=== PATIENT | female | born 1965 | race Caucasian/White ===

== ENCOUNTER 2016-09-19 16:44 | Observation (INO) | payer OTHER ==
[~2016-09-19] VITALS: Ht 162.6 cm; Wt 59.6 kg
[2016-09-19] VITALS (7 sets, daily range): BP systolic 104–146; BP diastolic 57–76; PULSE 95–111; RESP 18–24; TEMP 99.6–102.7; O2SAT 90–100
[~2016-09-19 16:44] MED LIST: ASPI325T PO; GABA400C5 PO; HYDR-3535 PO; IBUP600T26 PO; LISI-363 PO; MORP1INJ45 PO
[2016-09-19] MEDS ORDERED: VANCOMYCIN INJ 1,000 MG in SODIUM CHLOR 0.9% 250 ML INJ 250 ML IV STA (17:10)
[2016-09-19] MEDS ORDERED: PIPERACIL-TAZO 4.5 GM PREMIX 100 ML IV STA (17:10)
[2016-09-19] MEDS ORDERED: LORazepam 2 MG/ML VIAL IV PUSH ONE (17:15)
[2016-09-19] MEDS ORDERED: SODIUM CHLOR 0.9% 1000 ML INJ 1,000 ML IV ONE ×2 (17:23)
[2016-09-19] MEDS ORDERED: RESP: ALBUTEROL 2.5 MG/IPRATROPIUM 0.5 MG NEB (SCH) INH ONE (17:30)
[2016-09-19] MEDS ORDERED: IBUPROFEN 600 MG TAB PO ONE (17:30)
[2016-09-19] MEDS ORDERED: ACETAMINOPHEN 500 MG CPLT PO ONE (17:30)
[2016-09-19 17:40] LABS: AUTOMATED NEUTROPHIL # 7.1 TH/MM3 (1.8-7.7); EOSINOPHIL % 0.1 % (0.0-4.0); HEMO FLAGS DIFF FINAL; LYMPH % 11.7 % (9.0-44.0); MEAN CELL VOLUME 88.5 FL (80.0-100.0); MEAN CORPUSCULAR HGB CONC 33.9 % (32.0-36.0); MONO % 4.8 % (0.0-8.0); NEUT % 83.4 % (16.0-70.0); PLATELET COUNT 199 TH/MM3 (150-450); RED BLOOD COUNT 4.41 MIL/MM3 (4.00-5.30); RED CELL DISTRIBUTION WIDTH 12.3 % (11.6-17.2); WHITE BLOOD COUNT 8.5 TH/MM3 (4.0-11.0)
[2016-09-19 17:41] LABS: GLUCOSE,URINE NEG (NEG); KETONE, URINE TRACE mg/dL (NEG); NITRITE,URINE NEG (NEG); PH, URINE 5.5 (5.0-8.5)
--- NOTE | 2016-09-19 17:43 | PD ---
HPI Chief Complaint: Fever Time Seen by Provider: 17:10 Travel History International Travel<30 days: No Contact w/Intl Traveler<30days: No Traveled to known affect area: No History of Present Illness HPI 51-year-old female with history of borderline MR to the emergency department with 3 day history of high fevers of 101-102 according to her brother. Patient is somewhat delirious, but also has something to do with her baseline status. She has had a cough. Patient has history of pneumonia approximately 10 years ago. She denies any specific complaints but is disoriented. Patient does smoke approximately 1 pack per day. No significant complaints of abdominal pain or urinary pain. It is difficult to assess due to the patient's poor historian status. She has no known drug allergies. PFSH Past Medical History Cancer: No Diabetes: No Diminished Hearing: No Fibromyalgia: Yes Hepatitis: No Hiatal Hernia: No Hypertension: Yes Thyroid Disease: No ?: Not Menopausal: Yes Past Surgical History Abdominal Surgery: Yes (REPAIR RIGHT INGUINAL HERNIA) Oral Surgery: Yes (DENTAL SX) Pacemaker: No Other Surgery: Yes (INGUINAL HERNIA REPAIR, BLADDER FOR PROLAPSE) Social History Alcohol Use: No Tobacco Use: Yes (1 PPD) Substance Use: No Allergies-Medications (Allergen,Severity, Reaction): Coded Allergies: No Known Allergies (Verified , 09/19/16) Reported Meds & Prescriptions Reported Meds & Active Scripts Active Reported [Muscle Relaxer] Lortab (Hydrocodone-Acetaminophen) 10-325 Mg Tab 1 Tab PO DIRECTED PRN Review of Systems ROS Limitations: Clinical Condition, Poor Historian Except as stated in HPI: all other systems reviewed are Neg General / Constitutional: Positive: Fever, Chills Eyes: No: Visual changes HENT: No: Headaches Cardiovascular: No: Chest Pain or Discomfort Respiratory: Positive: Cough, Shortness of Breath, Wheezing Gastrointestinal: Positive: Nausea, Loss of Appetite, No: Abdominal Pain Genitourinary: No: Dysuria Musculoskeletal: No: Pain Skin: No Rash Neurologic: No: Weakness Psychiatric: No: Depression Endocrine: No: Polydipsia Hematologic/Lymphatic: No: Easy Bruising Physical Exam Exam Limitations: Clinical Condition, Altered Mental Status, Uncooperative Narrative GENERAL: Patient is in moderate distress. SKIN: Warm and dry. Normal color. Normal turgor. HEAD: Atraumatic. Normocephalic. EYES: Pupils equal and round. No scleral icterus. No injection or drainage. ENT: No nasal bleeding or discharge. Mucous membranes pink and moist. Pharynx is open. NECK: Trachea midline. Supple and nontender. CARDIOVASCULAR: Regular rate and rhythm. RESPIRATORY: No accessory muscle use. Diffuse wheezes throughout to auscultation. Breath sounds equal bilaterally. GASTROINTESTINAL: Abdomen soft, non-tender, nondistended. Hepatic and splenic margins not palpable. MUSCULOSKELETAL: Extremities without clubbing, cyanosis, or edema. No obvious deformities. NEUROLOGICAL: Awake and alert. No obvious cranial nerve deficits. Motor grossly within normal limits. Five out of 5 muscle strength in the arms and legs. Normal speech. PSYCHIATRIC: Appropriate mood and affect; insight and judgment normal. Data Data Last Documented VS Vital Signs Date Time Temp Pulse Resp B/P Pulse Ox O2 Delivery O2 Flow Rate FiO2 09/19/16 18:23 102.7 96 20 104/76 95 5 17:47 Room Air Orders Electrocardiogram (09/19/16 17:10) Complete Blood Count With Diff (09/19/16 17:10) Comprehensive Metabolic Panel (09/19/16 17:10) Prothrombin Time / Inr (Pt) (09/19/16 17:10) Act Partial Throm Time (Ptt) (09/19/16 17:10) Lactic Acid Sepsis Protocol (09/19/16 17:10) Magnesium (Mg) (09/19/16 17:10) Urinalysis - C+S If Indicated (09/19/16 17:10) Influenzae A/B Antigen (09/19/16 17:10) Blood Culture (09/19/16 17:10) Chest, Single Ap (09/19/16 17:10) Blood Glucose (09/19/16 17:10) Ecg Monitoring (09/19/16 17:10) Iv Access Insert/Monitor (09/19/16 17:10) Oximetry (09/19/16 17:10) Oxygen Administration (09/19/16 17:10) Vancomycin Inj (Vancomycin Inj) (09/19/16 17:10) Piperacil-Tazo 4.5 Gm Premix (Zosyn 4.5 (09/19/16 17:10) Lorazepam Inj (Ativan Inj) (09/19/16 17:15) Acetaminophen (Tylenol) (09/19/16 17:30) Ibuprofen (Motrin) (09/19/16 17:30) Albuterol-Ipratropium Neb (Duoneb Neb) (09/19/16 17:30) Sodium Chlor 0.9% 1000 Ml Inj (Ns 1000 M (09/19/16 17:23) Sodium Chlor 0.9% 1000 Ml Inj (Ns 1000 M (09/19/16 17:23) Urine Culture (09/19/16 17:15) B-Type Natriuretic Peptide (09/19/16 18:41) Troponin I (09/19/16 17:15) Admit Order (Ed Use Only) (09/19/16 19:00) Albuterol-Ipratropium Neb (Duoneb Neb) (09/19/16 19:15) Labs Laboratory Tests Test 09/19/16 17:15 White Blood Count 8.5 TH/MM3 Red Blood Count 4.41 MIL/MM3 Hemoglobin 13.2 GM/DL Hematocrit 39.0 % Mean Corpuscular Volume 88.5 FL Mean Corpuscular Hemoglobin 30.0 PG Mean Corpuscular Hemoglobin 33.9 % Concent Red Cell Distribution Width 12.3 % Platelet Count 199 TH/MM3 Mean Platelet Volume 8.5 FL Neutrophils (%) (Auto) 83.4 % Lymphocytes (%) (Auto) 11.7 % Monocytes (%) (Auto) 4.8 % Eosinophils (%) (Auto) 0.1 % Basophils (%) (Auto) 0.0 % Neutrophils # (Auto) 7.1 TH/MM3 Lymphocytes # (Auto) 1.0 TH/MM3 Monocytes # (Auto) 0.4 TH/MM3 Eosinophils # (Auto) 0.0 TH/MM3 Basophils # (Auto) 0.0 TH/MM3 CBC Comment DIFF FINAL Differential Comment Prothrombin Time 11.2 SEC Prothromb Time International 1.0 RATIO Ratio Activated Partial 32.1 SEC Thromboplast Time Urine Color STRAW Urine Turbidity SLIGHT Urine pH 5.5 Urine Specific [place] 1.015 Urine Protein NEG mg/dL Urine Glucose (UA) NEG mg/dL Urine Ketones TRACE mg/dL Urine Occult Blood MOD Urine Nitrite NEG Urine Bilirubin NEG Urine Leukocyte Esterase NEG Urine RBC 4-9 /hpf Urine WBC 0-2 /hpf Urine Squamous Epithelial 0-5 /hpf Cells Urine Bacteria MANY /hpf Microscopic Urinalysis Comment CULTURE INDICATED Sodium Level 141 MEQ/L Potassium Level 3.7 MEQ/L Chloride Level 104 MEQ/L Carbon Dioxide Level 28.8 MEQ/L Anion Gap 8 MEQ/L Blood Urea Nitrogen 11 MG/DL Creatinine 0.74 MG/DL Estimat Glomerular Filtration 83 ML/MIN Rate Random Glucose 112 MG/DL Lactic Acid Level 1.3 mmol/L Calcium Level 9.3 MG/DL Magnesium Level 1.8 MG/DL Total Bilirubin 0.4 MG/DL Aspartate Amino Transf 43 U/L (AST/SGOT) Alanine Aminotransferase 48 U/L (ALT/SGPT) Alkaline Phosphatase 90 U/L Troponin I LESS THAN 0.02 NG/ML B-Type Natriuretic Peptide 73 PG/ML Total Protein 8.0 GM/DL Albumin 4.0 GM/DL Urine Opiates Screen POS Urine Barbiturates Screen NEG Urine Amphetamines Screen NEG Urine Benzodiazepines Screen POS Urine Cocaine Screen NEG Urine Cannabinoids Screen NEG MDM Medical Decision Making Medical Screen Exam Complete: Yes Emergency Medical Condition: Yes Medical Record Reviewed: Yes Differential Diagnosis Viral illness. Influenza. Pneumonia. Bronchitis. Wheezing. Sepsis. Narrative Course Patient is medically stable at time of exam. Sepsis workup is ordered, as well as EKG. CBC, CMP, PT PTT and INR, magnesium. Blood cultures 2. Influenza A and B. And urinalysis. Chest x-ray is ordered. Patient is given 1000 mg of acetaminophen and 600 mg ibuprofen. By mouth. Patient is given Zosyn 0.5 g IV as well as vancomycin 1000 mg IV. Patient is given 2 L normal saline bolus. Patient is given a DuoNeb 1. Patient is given lorazepam 1 mg IV. Patient was moved from fast track area to the medical bed side, and care of the patient was assumed by Dr. Lewis. Please see his note for final disposition. Scripts Oxygen tank 1 Ea Tank #2 Liter Sanchez.canula Continuous Oxygen Concentrator Portable Gaseous 2 L/min via Nasal Cannula Continuous For 99 months Prov:Greg Mcdaniels MD PhD 09/20/16 Albuterol Neb 1.25 Mg/3 Ml Neb1.25 Mg NEB Q4HR NEB PRN (SHORTNESS OF BREATH) # 50 NEBULE Ref 0 Prov:Greg Mcdaniels MD PhD 09/20/16 Levofloxacin (Levaquin)750 Mg [id number] Mg PO Q24H #6 TAB Prov:Greg Mcdaniels MD PhD 09/20/16 Gabapentin (Neurontin)300 Mg [id number] Mg PO QID 30 Days Prov:Greg Mcdaniels MD PhD 09/20/16 Condition: Stable Diego Brown September 19, 2016 17:43
[2016-09-19] MEDS ORDERED: GABA600T PO (17:47)
[2016-09-19] MEDS ORDERED: LISI-515 PO (17:47)
[2016-09-19] MEDS ORDERED: HYDR-3535 PO (17:47)
[2016-09-19] MEDS ORDERED: MORP15TA73 PO (17:47)
[2016-09-19] MEDS ORDERED: MUSCLE RELAXER (17:47)
[2016-09-19 17:49] LABS: CHLORIDE 104 MEQ/L (98-107); POTASSIUM 3.7 MEQ/L (3.5-5.1); SODIUM (NA) 141 MEQ/L (136-145)
[2016-09-19 17:51] LABS: BLOOD, URINE MOD (NEG)
[2016-09-19 17:53] LABS: ANION GAP 8 MEQ/L (5-15); BICARBONATE 28.8 MEQ/L (21.0-32.0); BLOOD UREA NITROGEN 11 MG/DL (7-18); MAGNESIUM 1.8 MG/DL (1.5-2.5)
[2016-09-19 17:56] LABS: ALT (GPT) 48 U/L (10-53); AST (GOT) 43 U/L (15-37); GLOMERULAR FILTRATION RATE 83 ML/MIN (>89)
[2016-09-19 17:58] LABS: TOTAL BILIRUBIN ADULT 0.4 MG/DL (0.2-1.0)
[2016-09-19 17:59] LABS: ALKALINE PHOSPHATASE 90 U/L (45-117); URINE COLOR STRAW (YELLW/STRAW)
[2016-09-19 18:00] LABS: SQUAMOUS EPITHELIAL CELL URINE 0-5 /hpf (0-5); WBC, URINE 0-2 /hpf (0-5)
[2016-09-19 18:01] LABS: BACTERIA, URINE MANY /hpf; COMMENT (UR) CULTURE INDICATED; CULTURE IF INDICATED CULTURE INDICATED
--- NOTE | 2016-09-19 18:30 | RADHPO ---
EXAM DATE/TIME: 09/19/2016 17:34 [facility] COMPARISON: No previous studies available for comparison. INDICATIONS : Fever. MEDICAL HISTORY : Hypertension. Chronic obstructive pulmonary disease. Arthritis. Asthma, Spinal stenosis, Anxiety, Fibromyalgia, Hyperlipidemia SURGICAL HISTORY : Hysterectomy. Hernia repair ENCOUNTER: Initial ACUITY: 3 days PAIN SCORE: 4/10 LOCATION: Bilateral chest FINDINGS: There is symmetric mild bilateral perihilar and basilar reticular nodular infiltrate. No evidence of effusion. Cardiac contours are grossly satisfactory. CONCLUSION: Symmetric bilateral reticulonodular infiltrates. Kt Ramos MD on September 19, 2016 at 18:28 Board Certified Radiologist. This report was verified electronically.
[2016-09-19 18:58] LABS: APTT (PATIENT) 32.1 SEC (24.3-30.1); PROTHROMBIN TIME - PATIENT 11.2 SEC (9.8-11.6)
[2016-09-19] MEDS ORDERED: RESP: ALBUTEROL 2.5 MG/IPRATROPIUM 0.5 MG NEB (SCH) NEB ONE (19:15)
[2016-09-19] MEDS ORDERED: ACETAMINOPHEN 500 MG CPLT PO PRN (20:15)
[2016-09-19] MEDS ORDERED: NS + KCL 20 MEQ INJ 1,000 ML IV SCH (20:15)
[2016-09-19] MEDS ORDERED: RESP: ALBUTEROL 2.5 MG/IPRATROPIUM 0.5 MG NEB (PRN) NEB (20:15)
--- NOTE | 2016-09-19 20:28 | HHI.HP ---
HPI Service CP Hospitalists Primary Care Physician Non-Staff Admission Diagnosis Fever/Sepsis Chief Complaint: Fever, weakness Travel History International Travel<30 Days: No Contact w/Intl Traveler <30 Da: No Traveled to Known Affected Are: No Sepsis Criteria SIRS Criteria (2 or more): Temp > 100.9 or < 96.8, Heart rate over 90, RR > 20 or PaCO2 < 32 Sepsis Criteria (SIRS+source): Infect source susp/known History of Present Illness 51-year-old female with history of diet-controlled diabetes, hypertension, chronic pain syndrome and questionable COPD presents to the emergency department with 3 day history of high fevers of 101-102 according to her . Patient reportedly was somewhat delirious initially but appears back to her baseline mentation on my exam. Her reports that she didn't want to come tonight despite having the fevers to last 2-3 days. She has had a cough with thick phlegm production. Denies hemoptysis. Denies chest pain. Patient has history of pneumonia approximately 10 years ago. She reportedly was initially disoriented but is now oriented to place and time as well as situation. Patient does smoke approximately 1 pack per day. Denies dysuria or hematuria but says that she has had to fight urinary tract infection since she had a failed cystocele repair several years ago. She has no known drug allergies. Review of Systems ROS Limitations: Poor Historian Constitutional: COMPLAINS OF: Diaphoretic episodes, Fatigue, Fever, Chills Eyes: DENIES: Blurred vision, Diplopia, Eye inflammation, Eye pain, Vision loss , Photosensitivity, Double Vision Ears, nose, mouth, throat: DENIES: Tinnitus, Hearing loss, Vertigo, Nasal discharge, Oral lesions, Throat pain, Hoarseness, Ear Pain, Running Nose, Epistaxis, Sinus Pain, Toothache, Odynophagia Respiratory: COMPLAINS OF: Cough, Wheezing, Sputum production, Shortness of breath, DENIES: Apneas, Snoring, Hemoptysis Cardiovascular: DENIES: Chest pain, Palpitations, Syncope, Dyspnea on Exertion , PND, Lower Extremity Edema, Orthopnea, Claudication Gastrointestinal: DENIES: Abdominal pain, Black stools, Bloody stools, BRB per rectum, Constipation, Diarrhea, GERD, Nausea, Reflux, Vomiting, Difficulty Swallowing, Anorexia, See HPI Musculoskeletal: COMPLAINS OF: Joint pain, Back pain Integumentary: DENIES: Abnormal pigmentation, Pruritus, Rash, Nail changes, Breast masses, Breast skin changes, Nipple discharge Hematologic/lymphatic: DENIES: Bruising, Lymphadenopathy Psychiatric: COMPLAINS OF: Anxiety Past Family Social History Past Medical History Cervicalgia Chronic pain syndrome Fibromyalgia Asthma vs COPD tobacco use HTN Hyperlipidemia DM 2, diet control Anxiety Migraine h/a osteoporosis Past Surgical History RI rpr 1999 Hysterectomy 2012 Reported Medications Lisinopril 20 Mg Tab 20 Mg PO DAILY Gabapentin 600 Mg Tab 600 Mg PO 4 times a day Morphine Sulfate CR (Morphine Sulfate) 15 Mg Tab 1 Tab PO 3 times a day Lortab (Hydrocodone-Acetaminophen) 10-325 Mg Tab 1 Tab PO EVERY 8 HOURS WHEN NECESSARY BREAKTHROUGH PAIN Ipratropium nebulizer as needed. Baclofen 10 mg 3 times a day. Xanax 2 mg daily at bedtime Allergies: Coded Allergies: No Known Allergies (Verified , 09/19/16) Family History Noncontributory Social History Lives with , since 2007 Tobacco use, 1ppd for 30 yrs. Rare EtOH, Denies illicits Disabled secondary to chronic pain Originally from [place]. Physical Exam Vital Signs Vital Signs Date Time Temp Pulse Resp B/P Pulse Ox O2 Delivery O2 Flow Rate FiO2 09/19/16 19:17 99.6 100 18 104/57 98 Aerosol Mask 09/19/16 19:17 100 20 98 Aerosol Mask 09/19/16 18:23 102.7 96 20 104/76 95 09/19/16 17:47 102.0 102 24 146/65 100 Room Air 09/19/16 17:39 100 Room Air 09/19/16 17:39 100 Room Air 09/19/16 17:24 92 Room Air 09/19/16 17:01 102.1 111 20 132/67 90 Physical Exam GENERAL: This is a well-nourished, well-developed patient, in no apparent distress. Sleeping initially but arouses to voice. Alert cooperative with exam. SKIN: No rashes, ecchymoses or lesions with the exception of a few surface abrasions on the left forearm. Cool and dry. HEAD: Atraumatic. Normocephalic. No temporal or scalp tenderness. EYES: Pupils equal round and reactive. Extraocular motions intact. No scleral icterus. No injection or drainage. ENT: Nose without bleeding, purulent drainage or septal hematoma. Airway patent. NECK: Trachea midline. No JVD or lymphadenopathy. Supple, nontender, no meningeal signs. CARDIOVASCULAR: Regular rate and rhythm without murmurs, gallops, or rubs. Heart rate around 90 on my exam. RESPIRATORY: Coarse breath sounds bilaterally with expiratory wheezes bilaterally. Fair air movement. No fine crackles. GASTROINTESTINAL: Abdomen soft, non-tender, nondistended. No hepato-splenomegaly , or palpable masses. No guarding. MUSCULOSKELETAL: Extremities without clubbing, cyanosis, or edema. Mild tenderness to palpation and paralumbar area. No CVA tenderness. No calf tenderness. NEUROLOGICAL: Awake and alert. Cranial nerves II through XII intact. Motor and sensory grossly within normal limits. Five out of 5 muscle strength in all muscle groups. Laboratory Laboratory Tests Test 09/19/16 17:15 White Blood Count 8.5 Red Blood Count 4.41 Hemoglobin 13.2 Hematocrit 39.0 Mean Corpuscular Volume 88.5 Mean Corpuscular Hemoglobin 30.0 Mean Corpuscular Hemoglobin 33.9 Concent Red Cell Distribution Width 12.3 Platelet Count 199 Mean Platelet Volume 8.5 Neutrophils (%) (Auto) 83.4 Lymphocytes (%) (Auto) 11.7 Monocytes (%) (Auto) 4.8 Eosinophils (%) (Auto) 0.1 Basophils (%) (Auto) 0.0 Neutrophils # (Auto) 7.1 Lymphocytes # (Auto) 1.0 Monocytes # (Auto) 0.4 Eosinophils # (Auto) 0.0 Basophils # (Auto) 0.0 CBC Comment DIFF FINAL Differential Comment Prothrombin Time 11.2 Prothromb Time International 1.0 Ratio Activated Partial 32.1 Thromboplast Time Urine Color STRAW Urine Turbidity SLIGHT Urine pH 5.5 Urine Specific [place] 1.015 Urine Protein NEG Urine Glucose (UA) NEG Urine Ketones TRACE Urine Occult Blood MOD Urine Nitrite NEG Urine Bilirubin NEG Urine Leukocyte Esterase NEG Urine RBC 4-9 Urine WBC 0-2 Urine Squamous Epithelial 0-5 Cells Urine Bacteria MANY Microscopic Urinalysis Comment CULTURE INDICATED Sodium Level 141 Potassium Level 3.7 Chloride Level 104 Carbon Dioxide Level 28.8 Anion Gap 8 Blood Urea Nitrogen 11 Creatinine 0.74 Estimat Glomerular Filtration 83 Rate Random Glucose 112 Lactic Acid Level 1.3 Calcium Level 9.3 Magnesium Level 1.8 Total Bilirubin 0.4 Aspartate Amino Transf 43 (AST/SGOT) Alanine Aminotransferase 48 (ALT/SGPT) Alkaline Phosphatase 90 Troponin I LESS THAN 0.02 B-Type Natriuretic Peptide 73 Total Protein 8.0 Albumin 4.0 Date/Time Procedure Status Source Growth 09/19/16 17:35 Influenza Types A,B Antigen ([facility]) - Final Complete Nasal Washing NEGATIVE FOR FLU A AND B ANTIGEN.... 09/19/16 17:15 Urine Culture Received Urine Clean Catch Pending 09/19/16 17:15 Aerobic Blood Culture Received Blood Peripheral Pending 09/19/16 17:15 Anaerobic Blood Culture Received Blood Peripheral Pending Result Diagram: 09/19/16 1715 09/19/16 1715 Imaging Last 72 hours Impressions Chest X-Ray 09/19/16 1710 Signed Impressions: Service Date/Time: Monday, September 19, 2016 17:34 - CONCLUSION: Symmetric bilateral reticulonodular infiltrates. Kt Ramos MD Assessment and Plan Problem List: (1) Pneumonia Status: Acute Plan: will treat initially with IV abx and hopefully transition to oral Levofloxacin Continue nebs, supplemental oxygen, 1 dose steroid Patient reluctantly agreed to stay at least overnight. I told her I would do my best to get her out tomorrow however if she continued to spike fevers or had some deterioration that this would be unlikely. (2) Urine findings abnormal Status: Acute Plan: possibly contributing to febrile illness. Will follow clinically. Continue abx. IVF. (3) Hypertension Status: Chronic Plan: will hold med for now (4) Chronic pain disorder Status: Chronic Plan: continue morphine for now. Will hold lortab initially due to tylenol content. Outpt f/u with pain mgmt (5) DM2 (diabetes mellitus, type 2) Status: Chronic Plan: apparently diet controlled. A1c 6.0 on most recent outpt labs DM diet. Accucheck bid (6) Anxiety Status: Chronic Plan: xanax as at home. Code Status Full Discussed Condition With Patient, her and ER healthcare provider. Greg Mcdaniels MD PhD September 19, 2016 20:28
[2016-09-19 20:52] LABS: AMPHETAMINE, URINE NEG (NEG); BARBITURATES, URINE NEG (NEG); COCAINE, URINE NEG (NEG)
[2016-09-19] MEDS ORDERED: LEVOFLOXACIN 750 MG TAB PO SCH (21:00)
[2016-09-19] MEDS ORDERED: ALPRAZolam 1 MG TAB PO SCH (21:00)
[2016-09-19] MEDS ORDERED: methylPREDNISolone SOD SUCC 40 MG/1 ML VIAL IV PUSH ONE (21:00)
[2016-09-19] MEDS: GABAPENTIN 300 MG CAP PO SCH (22:36)
[2016-09-19] MEDS: MORPHINE SULFATE 15 MG TAB PO PRN (22:47)
[2016-09-20 00:43] VITALS: BP 115/67; PULSE 89; RESP 16; TEMP 98.4; O2SAT 93
[2016-09-20 04:00] VITALS: BP 124/76; PULSE 88; RESP 20; TEMP 98.3; O2SAT 90
[2016-09-20] MEDS ORDERED: BACL10TA PO (04:26)
[2016-09-20] MEDS: MORPHINE SULFATE 15 MG TAB PO PRN (05:44)
--- NOTE | 2016-09-20 06:34 | HHI.PR ---
Subjective Remarks Feeling better this AM. In complaint is low back pain and rib pain due to the coughing. She reports that she generally takes Lortab for breakthrough pain which I actually held yesterday due to the Tylenol content. She is desirous of discharge home. She has walked in her room. She is tolerating oral intake. Her mentation is back to baseline per her report. They do note that the increased dose of gabapentin causes her to have some confusion and she had seen neurology regarding this. Objective Vitals Vital Signs Date Time Temp Pulse Resp B/P Pulse Ox O2 Delivery O2 Flow Rate FiO2 09/20/16 04:00 98.3 88 20 124/76 90 09/20/16 00:43 98.4 89 16 115/67 93 09/19/16 23:35 94 Nasal Cannula 2.00 09/19/16 21:24 99.7 95 20 115/60 97 09/19/16 20:36 18 97 09/19/16 19:17 99.6 100 18 104/57 98 Aerosol Mask 09/19/16 19:17 100 20 98 Aerosol Mask 09/19/16 18:23 102.7 96 20 104/76 95 09/19/16 17:47 102.0 102 24 146/65 100 Room Air 09/19/16 17:39 100 Room Air 09/19/16 17:39 100 Room Air 09/19/16 17:24 92 Room Air 09/19/16 17:01 102.1 111 20 132/67 90 09/19/16 09/19/16 09/20/16 15:00 23:00 07:00 Intake Total 1250 ml 1050 ml Output Total 1300 ml Balance 1250 ml -250 ml Intake Oral 750 ml IV Total 1250 ml 300 ml Output Urine Total 1300 ml # Voids 0 # Bowel Movements 0 GENERAL: Awake, alert and oriented. Cooperative with exam. No acute distress. SKIN: Warm and dry. HEAD: Normocephalic. EYES: No scleral icterus. No injection or drainage. NECK: Supple, trachea midline. No JVD or lymphadenopathy. CARDIOVASCULAR: Regular rate and rhythm without murmurs, gallops, or rubs. RESPIRATORY: Few coarse breath sounds in the bases, no wheezing. Improved air movement. No fine crackles. GASTROINTESTINAL: Abdomen soft, non-tender, nondistended. MUSCULOSKELETAL: No cyanosis, or edema. BACK: Mild paralumbar spasm. No central tenderness to palpation. No CVA tenderness. Result Diagram: 09/19/16 1715 09/19/16 171 Imaging Last 72 hours Impressions Chest X-Ray 09/19/161709 Signed Impressions: Service Date/Time: Monday, September 19, 2016 17:34 - CONCLUSION: Symmetric bilateral reticulonodular infiltrates. Kt Ramos MD Urinary Catheter: No Vascular Central Line Catheter: No A/P Problem List: (1) Pneumonia Status: Acute Plan: Convert to oral Levaquin. Continue nebs, supplemental oxygen, 1 dose steroid given. Patient desires discharge home today. She has not had any more fever overnight. Will have respiratory see her for home oxygen determination. (2) Urine findings abnormal Status: Acute Plan: possibly contributing to febrile illness. Will follow clinically. Continue abx. IVF. (3) Hypertension Status: Chronic Plan: BP well controlled here. We'll have patient hold medication for now. (4) Chronic pain disorder Status: Chronic Plan: continue morphine for now. Will hold lortab initially due to tylenol content. Outpt f/u with pain mgmt (5) DM2 (diabetes mellitus, type 2) Status: Chronic Plan: apparently diet controlled. A1c 6.0 on most recent outpt labs DM diet. Accucheck bid (6) Anxiety Status: Chronic Plan: xanax as at home. Discharge Planning Hopefully discharge home later today. Greg Mcdaniels MD PhD September 20, 2016 06:34
[2016-09-20] MEDS ORDERED: ACETAMINOPHEN/HYDROcodone 325 MG/10 MG TAB PO PRN (06:45)
[2016-09-20] MEDS ORDERED: BACLOFEN 10 MG TAB PO ONE (06:45)
[2016-09-20] MEDS ORDERED: OXYGENTANK NAS.CANULA (06:47)
[2016-09-20] MEDS ORDERED: NEUR300C PO (06:47)
[2016-09-20] MEDS ORDERED: MORP1TAB24 PO (06:47)
[2016-09-20] MEDS ORDERED: ALBU1.25 NEB (06:47)
[2016-09-20] MEDS ORDERED: LEVA750T PO (06:47)
[2016-09-20 08:00] VITALS: BP 124/64; PULSE 86; RESP 19; TEMP 97.8; O2SAT 92
[2016-09-20] MEDS: GABAPENTIN 300 MG CAP PO SCH (08:09)
[2016-09-20 08:17] VITALS: O2SAT 95
[2016-09-20 09:12] VITALS: RESP 18
--- NOTE | 2016-09-20 13:20 | HHI.PR ---
Addendum to Inpatient Note Addendum Reason: Additional Documentation Additional Information Notified that pt left AMA before her home oxygen could be arranged. It was explained to her by nurse that she needed to wait on oxygen, but pt insisted on leaving. Greg Mcdaniels MD PhD September 20, 2016 13:20
--- NOTE | 2016-09-20 13:27 | EKG ---
Date Performed: 09/19/2016 Time Performed: 17:15:52 PTAGE: 51 years EKG: Sinus tachycardia. Extensive ST-T changes suggest myocardial injury/ischemia Abnormal ECG NO PREVIOUS TRACING DOCTOR: Judi Gupta Interpretating Date/Time 09/20/2016 13:25:37
== END 2016-09-20 13:00 | disposition left against medical advice (07) ==
LOC: PHED 16:44 → PHEDA 19:01 → PH3A 20:34
PROVIDERS: ADMIT Family Medicine; ATTEND Family Medicine
DX: J18.9 Pneumonia, unspecified organism (principal); R82.99 Other abnormal findings in urine; I10 Essential (primary) hypertension; G89.4 Chronic pain syndrome; E11.9 Type 2 diabetes mellitus without complications; F41.9 Anxiety disorder, unspecified; M79.7 Fibromyalgia; M81.0 Age-related osteoporosis without current pathological fracture; F17.200 Nicotine dependence, unspecified, uncomplicated
CPT/HCPCS: 71010; 80053; 80307; 81001; 82948; 83605; 83735; 83880; 84484; 85025; 85610; 85730; 87040; 87077; 87086; 87186; 87804; 93005; 94620; 94640; 94664; 96365; 96367; 96375; 99285; G0378; J2060; J2543; J2920; J3370; J3480; J7030; J7050

== ENCOUNTER 2017-01-08 20:45 | Emergency (ER) | payer OTHER ==
[~2017-01-08 20:45] MED LIST changes: +ALBU1.25 NEB; -ASPI325T PO; +BACL10TA PO; -GABA400C5 PO; -IBUP600T26 PO; +LEVA750T PO; -LISI-363 PO; -MORP1INJ45 PO; +MORP1TAB24 PO; +MUSCLE RELAXER; +NEUR300C PO; +OXYGENTANK NAS.CANULA
[2017-01-08 20:48] VITALS: BP 104/57; PULSE 86; RESP 20
[2017-01-08] MEDS ORDERED: ASPI325T PO (21:17)
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
[2017-01-08] MEDS ORDERED: SODIUM CHLOR 0.9% 1000 ML INJ 1,000 ML IV ONE (21:30)
[2017-01-08 22:29] VITALS: BP 97/48; PULSE 60; RESP 16; TEMP 98.2; O2SAT 97
--- NOTE | 2017-01-08 22:32 | RADRPT ---
EXAM DATE/TIME: 01/08/2017 21:32 [facility] COMPARISON: No previous studies available for comparison. INDICATIONS : Status post fall, blurred vision RADIATION DOSE: 63.08 CTDIvol (mGy) MEDICAL HISTORY : Seizures. Migraine, fibromyalgia SURGICAL HISTORY : Hysterectomy. ENCOUNTER: Initial ACUITY: 1 day PAIN SCALE: 8/10 LOCATION: cranial TECHNIQUE: Multiple contiguous axial images were obtained of the head. Using automated exposure control and adj ustment of the mA and/or kV according to patient size, radiation dose was kept as low as reasonably a chievable to obtain optimal diagnostic quality images. DICOM format image data is available electro nically for review and comparison. FINDINGS: CEREBRUM: The ventricles are normal for age. No evidence of midline shift, mass lesion, hemorrhage or acute in farction. No extra-axial fluid collections are seen. POSTERIOR FOSSA: The cerebellum and brainstem are intact. The 4th ventricle is midline. The cerebellopontine angle i s unremarkable. EXTRACRANIAL: The visualized portion of the orbits is intact. SKULL: The calvaria is intact. No evidence of skull fracture. CONCLUSION: No acute disease. Kt Manuel MD on January 08, 2017 at 22:29 Board Certified Radiologist. This report was verified electronically.
--- NOTE | 2017-01-08 22:34 | RADRPT ---
EXAM DATE/TIME: 01/08/2017 21:32 [facility] COMPARISON: No previous studies available for comparison. INDICATIONS : Status post fall, neck pain RADIATION DOSE: 26.34 CTDIvol (mGy) MEDICAL HISTORY : Seizures. Radiculopathy. fibromyalgia, spinal stenosis SURGICAL HISTORY : Hysterectomy. dental ENCOUNTER: Initial ACUITY: 1 day PAIN SCALE: 9/10 LOCATION: Right neck TECHNIQUE: Volumetric scanning of the cervical spine was performed. Multiplanar reconstructions in the sagittal, coronal and oblique axial planes were performed. Using automated exposure control and adjustment o f the mA and/or kV according to patient size, radiation dose was kept as low as reasonably achievable to obtain optimal diagnostic quality images. DICOM format image data is available electronically f or review and comparison. FINDINGS: VERTEBRAE: Normal vertebral body height. ALIGNMENT: No evidence of subluxation. C2-C3: The bony spinal canal is normal in size. No evidence of disc bulge or herniation. The neural forami na are bilaterally patent. There is prominent right facet hypertrophy. C3-C4: The bony spinal canal is normal in size. No evidence of disc bulge or herniation. The neural forami na are bilaterally patent. C4-C5: The bony spinal canal is normal in size. No evidence of disc bulge or herniation. The neural forami na are bilaterally patent. C5-C6: The bony spinal canal is normal in size. No evidence of disc bulge or herniation. The neural forami na are bilaterally patent. C6-C7: The bony spinal canal is normal in size. No evidence of disc bulge or herniation. The neural forami na are bilaterally patent. C7-T1: The bony spinal canal is normal in size. No evidence of disc bulge or herniation. The neural forami na are bilaterally patent. CONCLUSION: No acute abnormality seen. There is prominent right C2-3 facet hypertrophy. Kt Manuel MD on January 08, 2017 at 22:30 Board Certified Radiologist. This report was verified electronically.
--- NOTE | 2017-01-08 22:36 | RADRPT ---
EXAM DATE/TIME: 01/08/2017 21:36 [facility] COMPARISON: No previous studies available for comparison. INDICATIONS : Right hip pain; fall tonight. MEDICAL HISTORY : None. SURGICAL HISTORY : None. ENCOUNTER: Initial ACUITY: 1 day PAIN SCORE: 10/10 LOCATION: Right hip. FINDINGS: Examination of the right hip was performed with AP Pelvis. The primary and secondary trabecular dhaval apolinar of the femoral neck is intact. The hip joint is of normal width without significant sclerosis or bony hypertrophy. The acetabulum is grossly intact. CONCLUSION: No acute disease. Kt Manuel MD on January 08, 2017 at 22:34 Board Certified Radiologist. This report was verified electronically.
--- NOTE | 2017-01-08 22:49 | RADRPT ---
EXAM DATE/TIME: 01/08/2017 21:48 [facility] COMPARISON: No previous studies available for comparison. INDICATIONS : Right knee pain; fall tonight. MEDICAL HISTORY : SURGICAL HISTORY : None. ENCOUNTER: Initial ACUITY: 1 day PAIN SCORE: 10/10 LOCATION: Right knee FINDINGS: The knee joint is normally aligned. No fracture is seen. No effusion is seen. There i s a focal lucent lesion seen in the proximal tibia measuring at least 4 cm in length. Periosteal reac tion is not seen. It appears to have a narrow zone of transition. CONCLUSION: 1. No definite acute abnormality is seen. 2. Focal lucent bone lesions seen in the proximal tibia in the metaphyseal region. It appears to hav e a narrow zone of transition suggestive of a benign lesion. It could be further evaluated at some p oint with an MRI examination. This could be performed as an outpatient. Kt Manuel MD on January 08, 2017 at 22:38 Board Certified Radiologist. This report was verified electronically.
== END 2017-01-08 23:18 | disposition home or self-care (01) ==
LOC: PHED 20:45
DX: S80.01XA Contusion of right knee, initial encounter (principal); M25.551 Pain in right hip; R51 Headache; J44.9 Chronic obstructive pulmonary disease, unspecified; M79.7 Fibromyalgia; I10 Essential (primary) hypertension; G89.29 Other chronic pain; M54.9 Dorsalgia, unspecified; F17.210 Nicotine dependence, cigarettes, uncomplicated; V86.59XA Driver of other special all-terrain or other off-road motor vehicle injured in nontraffic accident, initial encounter; Y92.007 Garden or yard of unspecified non-institutional (private) residence as the place of occurrence of the external cause; Y99.8 Other external cause status
CPT/HCPCS: 70450; 72125; 73502; 73564; 99285

== ENCOUNTER 2017-01-09 17:35 | Observation (INO) | payer OTHER ==
[2017-01-09] VITALS (10 sets, daily range): BP systolic 77–151; BP diastolic 39–82; PULSE 46–72; RESP 12–16; TEMP 96.1–98.6; O2SAT 93–99
[~2017-01-09] VITALS: Ht 162.6 cm; Wt 64.9 kg
[~2017-01-09 17:35] MED LIST changes: -ALBU1.25 NEB; +ASPI325T PO; -BACL10TA PO; -LEVA750T PO; -MORP1TAB24 PO; -MUSCLE RELAXER; -OXYGENTANK NAS.CANULA
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
[2017-01-09] MEDS ORDERED: SODIUM CHLORIDE 0.9% FLUSH 5 ML FLUSH IV FLUSH PRN (18:15)
[2017-01-09 18:23] LABS: AUTOMATED NEUTROPHIL # 5.7 TH/MM3 (1.8-7.7); BASOPHIL % 0.4 % (0.0-2.0); EOSINOPHIL # 0.1 TH/MM3 (0-0.4); EOSINOPHIL % 0.6 % (0.0-4.0); HEMATOCRIT 42.7 % (35.0-46.0); HEMO FLAGS DIFF FINAL; LYMPH % 40.1 % (9.0-44.0); LYMPHOCYTE # 4.6 TH/MM3 (1.0-4.8); MEAN CELL VOLUME 86.7 FL (80.0-100.0); MEAN CORPUSCULAR HEMOGLOBIN 29.3 PG (27.0-34.0); MEAN CORPUSCULAR HGB CONC 33.8 % (32.0-36.0); MONO % 8.8 % (0.0-8.0); NEUT % 50.1 % (16.0-70.0); PLATELET COUNT 268 TH/MM3 (150-450); RED BLOOD COUNT 4.93 MIL/MM3 (4.00-5.30); RED CELL DISTRIBUTION WIDTH 12.9 % (11.6-17.2); WHITE BLOOD COUNT 11.4 TH/MM3 (4.0-11.0)
[2017-01-09 18:30] LABS: CHLORIDE 103 MEQ/L (98-107); POTASSIUM 4.1 MEQ/L (3.5-5.1); SODIUM (NA) 136 MEQ/L (136-145)
[2017-01-09 18:34] LABS: ANION GAP 9 MEQ/L (5-15); BLOOD UREA NITROGEN 41 MG/DL (7-18)
[2017-01-09 18:35] LABS: APTT (PATIENT) 26.1 SEC (24.3-30.1); INTERNATIONAL NORMALIZED RATIO 0.9 RATIO
[2017-01-09 18:37] LABS: ALT (GPT) 29 U/L (10-53); AST (GOT) 27 U/L (15-37); GLOMERULAR FILTRATION RATE 17 ML/MIN (>89)
[2017-01-09 18:38] LABS: TOTAL BILIRUBIN ADULT 0.3 MG/DL (0.2-1.0)
[2017-01-09 18:40] LABS: ALKALINE PHOSPHATASE 74 U/L (45-117)
[2017-01-09 18:58] LABS: ALCOHOL LESS THAN 3 MG/DL (0-5)
[2017-01-09] MEDS ORDERED: SODIUM CHLOR 0.9% 1000 ML INJ 1,000 ML IV ONE (19:15)
[2017-01-09 19:28] LABS: ACETAMINOPHEN LESS THAN 2.0 MCG/ML (10.0-30.0)
--- NOTE | 2017-01-09 19:28 | RADRPT ---
EXAM DATE/TIME: 01/09/2017 18:26 [facility] COMPARISON: CT BRAIN W/O CONTRAST, January 08, 2017, 21:32. INDICATIONS : Altered mental status. RADIATION DOSE: 60.45 CTDIvol (mGy) MEDICAL HISTORY : Seizures. Chronic obstructive pulmonary disease. SURGICAL HISTORY : Hysterectomy. ENCOUNTER: Initial ACUITY: 1 day PAIN SCALE: 0/10 LOCATION: cranial TECHNIQUE: Multiple contiguous axial images were obtained of the head. Using automated exposure control and adj ustment of the mA and/or kV according to patient size, radiation dose was kept as low as reasonably a chievable to obtain optimal diagnostic quality images. DICOM format image data is available electro nically for review and comparison. FINDINGS: CEREBRUM: The ventricles are normal for age. No evidence of midline shift, mass lesion, hemorrhage or acute in farction. No extra-axial fluid collections are seen. POSTERIOR FOSSA: The cerebellum and brainstem are intact. The 4th ventricle is midline. The cerebellopontine angle i s unremarkable. EXTRACRANIAL: The visualized portion of the orbits is intact. SKULL: The calvaria is intact. No evidence of skull fracture. CONCLUSION: Normal examination. Kt Manuel MD on January 09, 2017 at 19:25 Board Certified Radiologist. This report was verified electronically.
[2017-01-09 19:40] LABS: CREATINE KINASE 513 U/L (26-192)
[2017-01-09 19:58] LABS: CKMB 8.5 NG/ML (0.5-3.6)
[2017-01-09 19:58] LABS: BLOOD, URINE NEG (NEG); GLUCOSE,URINE NEG (NEG); KETONE, URINE NEG (NEG); NITRITE,URINE NEG (NEG)
[2017-01-09 20:02] LABS: URINE COLOR YELLOW (YELLW/STRAW)
[2017-01-09 20:05] LABS: COMMENT (UR) CULT NOT INDICATED; CULTURE IF INDICATED CULT NOT INDICATED; RBC, URINE 0-2 /hpf (0-3); SQUAMOUS EPITHELIAL CELL URINE 0-5 /hpf (0-5); WBC, URINE 0-2 /hpf (0-5)
--- NOTE | 2017-01-09 20:50 | RADRPT ---
EXAM DATE/TIME: 01/09/2017 19:31 [facility] COMPARISON: CHEST SINGLE AP, September 19, 2016, 17:34. INDICATIONS : Shortness of breath. MEDICAL HISTORY : Seizures. Chronic obstructive pulmonary disease, Pneumonia SURGICAL HISTORY : Hysterectomy. ENCOUNTER: Initial ACUITY: 1 day PAIN SCORE: Non-responsive. LOCATION: Bilateral chest FINDINGS: A single view of the chest demonstrates the lungs to be symmetrically aerated without evidence of mas s, infiltrate or effusion. The cardiomediastinal contours are unremarkable. Osseous structures are intact. CONCLUSION: No acute disease. Kt Manuel MD on January 09, 2017 at 20:48 Board Certified Radiologist. This report was verified electronically.
[2017-01-09] MEDS ORDERED: SENNOSIDES 8.6 MG TAB PO PRN (22:00)
[2017-01-09] MEDS: SODIUM CHLOR 0.9% 1000 ML INJ 1,000 ML IV SCH (22:00)
[2017-01-09] MEDS ORDERED: BISACODYL 10 MG SUPP RECTAL PRN (22:00)
[2017-01-09] MEDS ORDERED: MAGNESIUM HYDROXIDE SUSP 30 ML CUP PO PRN (22:00)
[2017-01-09] MEDS ORDERED: NALOXONE HCL 0.4 MG/ML AMP IV PRN (22:00)
[2017-01-09] MEDS ORDERED: LACTULOSE SYRUP 20 GM/30 ML CUP PO PRN (22:00)
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
[2017-01-10 01:20] VITALS: BP 98/80; PULSE 69; RESP 20; TEMP 97.7; O2SAT 98
[2017-01-10 04:28] VITALS: BP 128/67; PULSE 64; RESP 22; TEMP 97; O2SAT 97
[2017-01-10 07:49] LABS: AUTOMATED NEUTROPHIL # 5.7 TH/MM3 (1.8-7.7); BASOPHIL % 0.5 % (0.0-2.0); EOSINOPHIL # 0.1 TH/MM3 (0-0.4); EOSINOPHIL % 0.6 % (0.0-4.0); HEMATOCRIT 40.2 % (35.0-46.0); HEMO FLAGS DIFF FINAL; LYMPH % 29.5 % (9.0-44.0); LYMPHOCYTE # 2.7 TH/MM3 (1.0-4.8); MEAN CELL VOLUME 86.8 FL (80.0-100.0); MEAN CORPUSCULAR HEMOGLOBIN 29.3 PG (27.0-34.0); MEAN CORPUSCULAR HGB CONC 33.8 % (32.0-36.0); MONO % 7.5 % (0.0-8.0); NEUT % 61.9 % (16.0-70.0); PLATELET COUNT 221 TH/MM3 (150-450); RED BLOOD COUNT 4.64 MIL/MM3 (4.00-5.30); RED CELL DISTRIBUTION WIDTH 13.1 % (11.6-17.2); WHITE BLOOD COUNT 9.2 TH/MM3 (4.0-11.0)
[2017-01-10 08:00] VITALS: BP 140/70; PULSE 61; RESP 18; TEMP 98.6; O2SAT 98
[2017-01-10] MEDS: SODIUM CHLOR 0.9% 1000 ML INJ 1,000 ML IV SCH (08:00)
[2017-01-10 08:22] LABS: ALKALINE PHOSPHATASE 56 U/L (45-117); ALT (GPT) 22 U/L (10-53); ANION GAP 7 MEQ/L (5-15); AST (GOT) 17 U/L (15-37); BICARBONATE 23.2 MEQ/L (21.0-32.0); BLOOD UREA NITROGEN 26 MG/DL (7-18); CHLORIDE 114 MEQ/L (98-107); GLOMERULAR FILTRATION RATE 76 ML/MIN (>89); POTASSIUM 4.2 MEQ/L (3.5-5.1); SODIUM (NA) 144 MEQ/L (136-145); TOTAL BILIRUBIN ADULT 0.7 MG/DL (0.2-1.0)
[2017-01-10] MEDS ORDERED: DOCUSATE SODIUM 50 MG/SENNA 8.6 MG TAB PO SCH (09:00)
--- NOTE | 2017-01-10 09:34 | EKG ---
Date Performed: 01/09/2017 Time Performed: 18:10:26 PTAGE: 51 years EKG: SINUS BRADYCARDIA BORDERLINE ECG PREVIOUS TRACING : 09/19/2016 17.15 DOCTOR: Pj Renteria Interpretating Date/Time 01/10/2017 09:33:16
[2017-01-10 10:28] VITALS: O2SAT 98
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
--- NOTE | 2017-01-10 11:21 | RADRPT ---
EXAM DATE/TIME: 01/10/2017 11:04 [facility] COMPARISON: No previous studies available for comparison. INDICATIONS : Right foot pain MEDICAL HISTORY : Chronic obstructive pulmonary disease. seizures SURGICAL HISTORY : Hysterectomy. ENCOUNTER: Initial ACUITY: 1 day PAIN SCORE: 10/10 LOCATION: Right foot FINDINGS: Three view examination of the right foot demonstrates no soft tissue swelling, dislocation, or fractu re. The tarsal bones appear intact. The interphalangeal and metatarsophalangeal joints are intact. The calcaneus is intact. Bony mineralization is normal. CONCLUSION: No acute disease. Herb Hicks MD on January 10, 2017 at 11:20 Board Certified Radiologist. This report was verified electronically.
== END 2017-01-10 12:05 | disposition home or self-care (01) ==
LOC: PHED 17:35 → PHEDA 20:01 → INTOOBSV 22:11 → OBSVTOIN 22:11 → PH3A 22:26
PROVIDERS: ADMIT Internal Medicine; ATTEND Internal Medicine
DX: N17.9 Acute kidney failure, unspecified (principal); R41.82 Altered mental status, unspecified; G89.4 Chronic pain syndrome; M54.2 Cervicalgia; M79.7 Fibromyalgia; R94.31 Abnormal electrocardiogram [ECG] [EKG]; Z87.01 Personal history of pneumonia (recurrent)
CPT/HCPCS: 70450; 71010; 73630; 80053; 80307; 81001; 82140; 82550; 82552; 84443; 85025; 85610; 85730; 93005; 99285; E0113; G0378; J7030; P9612

== ENCOUNTER 2017-03-20 16:39 | Emergency (ER) | payer OTHER ==
[~2017-03-20] VITALS: Ht 162.6 cm; Wt 68.0 kg
[~2017-03-20 16:39] MED LIST changes: +ASPI-183 PO; -ASPI325T PO
[2017-03-20 16:44] VITALS: BP 162/85; PULSE 86; RESP 16; TEMP 98.1; O2SAT 98
[2017-03-20] MEDS ORDERED: ALPR1TAB3 PO (16:58)
[2017-03-20] MEDS ORDERED: BACL10TA PO (16:58)
[2017-03-20] MEDS ORDERED: IBUP-1129 (16:58)
[2017-03-20] MEDS ORDERED: HYDR-3583 PO (16:58)
[2017-03-20] MEDS ORDERED: LISI-515 PO (16:58)
--- NOTE | 2017-03-20 17:12 | PD ---
HPI Chief Complaint: Abdominal Pain Time Seen by Provider: 16:52 Travel History International Travel<30 days: No Contact w/Intl Traveler<30days: No Traveled to known affect area: No History of Present Illness HPI The patient was seen and examined in the presence of the nurse. This patient complains of a hernia in her right groin. Duration is 3 weeks. Symptoms moderately severe. She had an outpatient ultrasound which suggest the possibility of incarcerated hernia. She has an outpatient follow-up with the general surgeon in about 4 weeks. Symptoms have no alleviating factors. She had nausea but no active vomiting today. No alleviating factors. Pain symptoms are exacerbated by her fibromyalgia and low pain tolerance. PFSH Past Medical History Arthritis: Yes Asthma: Yes Autoimmune Disease: Yes (epistine bar) Anxiety: Yes Depression: Yes Heart Rhythm Problems: No Cancer: No Cardiovascular Problems: Yes High Cholesterol: No Chemotherapy: No Chest Pain: No Congestive Heart Failure: No COPD: Yes Cerebrovascular Accident: No Diabetes: No Diminished Hearing: No Endocrine: No Fibromyalgia: Yes Genitourinary: Yes Headaches: Yes Hepatitis: No Hiatal Hernia: No Hypertension: Yes Immune Disorder: Yes Kidney Stones: No Medical other: Yes (FIBROMYALGIA) Musculoskeletal: Yes (SPINAL STINOSIS, HERNIATED DISCS) Neurologic: Yes Psychiatric: Yes Reproductive: Yes Respiratory: Yes Migraines: Yes Radiation Therapy: No Renal Failure: No Seizures: Yes (unknown last) Sickle Cell Disease: No Sleep Apnea: No Thyroid Disease: No Tetanus Vaccination: > 5 Years Influenza Vaccination: No ?: Not Menopausal: Yes Past Surgical History Abdominal Surgery: Yes (REPAIR RIGHT INGUINAL HERNIA ) Cardiac Surgery: No Ear Surgery: No Endocrine Surgery: No Eye Surgery: No Genitourinary Surgery: No Gynecologic Surgery: Yes (prolapsed attempted to fix) Hysterectomy: Yes Neurologic Surgery: No Oral Surgery: Yes (DENTAL SX) Pacemaker: No Thoracic Surgery: No Other Surgery: Yes (INGUINAL HERNIA REPAIR, BLADDER FOR PROLAPSE) Social History Alcohol Use: Yes (OCC) Tobacco Use: Yes (1 PPD) Substance Use: No (DENIES) Allergies-Medications (Allergen,Severity, Reaction): Coded Allergies: Sulfa (Sulfonamide Antibiotics) (Verified Allergy, Intermediate, Cramping , 03/20/17) Reported Meds & Prescriptions Reported Meds & Active Scripts Active Neurontin (Gabapentin) 300 Mg Cap 600 Mg PO QID 30 Days Reported Motrin Ib (Ibuprofen) 200 Mg Tablet Baclofen 10 Mg Tab 10 Mg PO HS Alprazolam 1 Mg Tab 2 Mg PO HS Lisinopril 20 Mg Tab 20 Mg PO BID Hydrocodone-Acetaminophen 10-325 mg Tab 1 Tab PO Q4H PRN Aspirin 325 Mg Tab 325 Mg PO DAILY Review of Systems General / Constitutional: No: Fever Eyes: No: Visual changes HENT: No: Headaches Cardiovascular: No: Chest Pain or Discomfort Respiratory: No: Shortness of Breath Gastrointestinal: Positive: Nausea, Abdominal Pain Genitourinary: No: Dysuria Musculoskeletal: No: Pain Skin: No Rash Neurologic: No: Weakness Psychiatric: No: Depression Endocrine: No: Polydipsia Hematologic/Lymphatic: No: Easy Bruising Physical Exam Narrative GENERAL: Well-nourished, well-developed patient lying in position with abdominal pain . SKIN: Focused skin assessment reveals no rash and nodules. Skin is Warm and dry. HEAD: Atraumatic. Normocephalic. EYES: Pupils equal and round. No scleral icterus. No injection or drainage. ENT: No nasal bleeding or discharge. Mucous membranes pink and moist. NECK: Trachea midline. No JVD. CARDIOVASCULAR: Regular rate and rhythm. No murmur appreciated. RESPIRATORY: No accessory muscle use. Clear to auscultation. Breath sounds equal bilaterally. GASTROINTESTINAL: Abdomen soft, non-tender, nondistended. Hepatic and splenic margins not palpable. I cannot palpate a hernia in the groin MUSCULOSKELETAL: No obvious deformities. No clubbing. No cyanosis. No edema. NEUROLOGICAL: Awake and alert. No obvious cranial nerve deficits. Motor grossly within normal limits. Normal speech. PSYCHIATRIC: Appropriate mood and affect; insight and judgment questionable Data Data Last Documented VS Vital Signs Date Time Temp Pulse Resp B/P (MAP) Pulse Ox O2 Delivery O2 Flow Rate FiO2 03/20/17 16:44 98.1 86 16 162/85 (110) 98 Orders Orders Complete Blood Count With Diff (03/20/17 17:07) Comprehensive Metabolic Panel (03/20/17 17:07) Lipase (03/20/17 17:07) Prothrombin Time / Inr (Pt) (03/20/17 17:07) Act Partial Throm Time (Ptt) (03/20/17 17:07) Ct Abd/Pel W Iv Contrast(Rout) (03/20/17 17:07) Iv Access Insert/Monitor (03/20/17 17:07) NPO (03/20/17 17:07) Morphine Inj (Morphine Inj) (03/20/17 17:15) Ondansetron Inj (Zofran Inj) (03/20/17 17:15) Sodium Chloride 0.9% Flush (Ns Flush) (03/20/17 17:15) Morphine Inj (Morphine Inj) (03/20/17 17:15) Iohexol 350 Inj (Omnipaque 350 Inj) (03/20/17 17:34) Labs Laboratory Tests Test 03/20/17 17:10 White Blood Count 9.9 TH/MM3 Red Blood Count 4.54 MIL/MM3 Hemoglobin 13.5 GM/DL Hematocrit 40.3 % Mean Corpuscular Volume 88.7 FL Mean Corpuscular Hemoglobin 29.6 PG Mean Corpuscular Hemoglobin Concent 33.4 % Red Cell Distribution Width 12.2 % Platelet Count 407 TH/MM3 Mean Platelet Volume 7.4 FL Neutrophils (%) (Auto) 60.7 % Lymphocytes (%) (Auto) 28.4 % Monocytes (%) (Auto) 6.4 % Eosinophils (%) (Auto) 0.6 % Basophils (%) (Auto) 3.9 % Neutrophils # (Auto) 6.0 TH/MM3 Lymphocytes # (Auto) 2.8 TH/MM3 Monocytes # (Auto) 0.6 TH/MM3 Eosinophils # (Auto) 0.1 TH/MM3 Basophils # (Auto) 0.4 TH/MM3 CBC Comment DIFF FINAL Differential Comment Prothrombin Time 10.4 SEC Prothromb Time International Ratio 0.9 RATIO Activated Partial Thromboplast Time 27.7 SEC Blood Urea Nitrogen 15 MG/DL Creatinine 0.65 MG/DL Random Glucose 97 MG/DL Total Protein 8.3 GM/DL Albumin 3.7 GM/DL Calcium Level 9.5 MG/DL Alkaline Phosphatase 127 U/L Aspartate Amino Transf (AST/SGOT) 43 U/L Alanine Aminotransferase (ALT/SGPT) 74 U/L Total Bilirubin 0.2 MG/DL Sodium Level 139 MEQ/L Potassium Level 3.6 MEQ/L Chloride Level 103 MEQ/L Carbon Dioxide Level 30.1 MEQ/L Anion Gap 6 MEQ/L Estimat Glomerular Filtration Rate 96 ML/MIN Lipase 157 U/L [facility] Medical Decision Making Medical Screen Exam Complete: Yes Emergency Medical Condition: Yes Medical Record Reviewed: Yes Differential Diagnosis Hernia, incarceration, colitis Narrative Course I have reviewed the patient's electronic medical record. Reviewed her most recent inpatient history and physical IV placed CBC is normal metabolic profile is normal LFT's shows minimal elevation of LFTs, nonspecific lipase is normal CT of abdomen and pelvis with IV contrast she does not demonstrate any hernia. Certainly there is no evidence of strangulation or incarceration. Couple of incidental findings are noted. Nothing to explain abdominal pain. I gave her dose of IV morphine and IV Zofran Vital signs normal. Stable for outpatient follow-up. She should call her family physician Thursday to get a reevaluation. Diagnosis Primary Impression: Right inguinal pain Additional Instructions: The patient was advised to follow up with their physician and return if they worsen. Med/Other Pt SpecificInfo: Other Disposition: 01 DISCHARGE HOME Condition: Stable Mio Montilla MD Mar 20, 2017 17:12
[2017-03-20] MEDS ORDERED: SODIUM CHLORIDE 0.9% FLUSH 10 ML FLUSH IV FLUSH PRN (17:15)
[2017-03-20] MEDS ORDERED: ONDANSETRON HCL 4 MG/2 ML VIAL IVP ONE (17:15)
[2017-03-20] MEDS ORDERED: MORPHINE SULFATE 8 MG/ML INJ IV PUSH ONE (17:15)
[2017-03-20] MEDS ORDERED: MORPHINE SULFATE 4 MG/ML INJ IV PUSH ONE (17:15)
[2017-03-20 17:20] LABS: BASOPHIL # 0.4 TH/MM3 (0-0.2); BASOPHIL % 3.9 % (0.0-2.0); EOSINOPHIL # 0.1 TH/MM3 (0-0.4); EOSINOPHIL % 0.6 % (0.0-4.0); HEMATOCRIT 40.3 % (35.0-46.0); HEMO FLAGS DIFF FINAL; LYMPH % 28.4 % (9.0-44.0); LYMPHOCYTE # 2.8 TH/MM3 (1.0-4.8); MEAN CELL VOLUME 88.7 FL (80.0-100.0); MEAN CORPUSCULAR HEMOGLOBIN 29.6 PG (27.0-34.0); MEAN CORPUSCULAR HGB CONC 33.4 % (32.0-36.0); MONO % 6.4 % (0.0-8.0); NEUT % 60.7 % (16.0-70.0); PLATELET COUNT 407 TH/MM3 (150-450); RED BLOOD COUNT 4.54 MIL/MM3 (4.00-5.30); RED CELL DISTRIBUTION WIDTH 12.2 % (11.6-17.2); WHITE BLOOD COUNT 9.9 TH/MM3 (4.0-11.0)
[2017-03-20 17:28] LABS: CHLORIDE 103 MEQ/L (98-107); POTASSIUM 3.6 MEQ/L (3.5-5.1); SODIUM (NA) 139 MEQ/L (136-145)
[2017-03-20 17:31] LABS: ANION GAP 6 MEQ/L (5-15); BICARBONATE 30.1 MEQ/L (21.0-32.0)
[2017-03-20 17:32] LABS: BLOOD UREA NITROGEN 15 MG/DL (7-18)
[2017-03-20 17:33] LABS: APTT (PATIENT) 27.7 SEC (24.3-30.1); INTERNATIONAL NORMALIZED RATIO 0.9 RATIO; PROTHROMBIN TIME - PATIENT 10.4 SEC (9.8-11.6)
[2017-03-20 17:34] LABS: ALT (GPT) 74 U/L (10-53); AST (GOT) 43 U/L (15-37); GLOMERULAR FILTRATION RATE 96 ML/MIN (>89)
[2017-03-20] MEDS ORDERED: IOHEXOL 350 MG/ML 10 ML VIAL (for RAD DIAG) IVCONTRAST ONE (17:34)
[2017-03-20 17:36] LABS: TOTAL BILIRUBIN ADULT 0.2 MG/DL (0.2-1.0)
[2017-03-20 17:37] LABS: ALKALINE PHOSPHATASE 127 U/L (45-117)
--- NOTE | 2017-03-20 17:49 | RADRPT ---
EXAM DATE/TIME: 03/20/2017 17:27 [facility] COMPARISON: No previous studies available for comparison. INDICATIONS : Right groin pain. IV CONTRAST: 85 cc Omnipaque 350 (iohexol) IV ORAL CONTRAST: No oral contrast ingested. RADIATION DOSE: 10.69 CTDIvol (mGy) MEDICAL HISTORY : Chronic obstructive pulmonary disease. Seizures. Hypertension.Asthma. SURGICAL HISTORY : Hysterectomy. Inguinal hernia repair.Bladder prolapse surgery. ENCOUNTER: Initial ACUITY: 3 months PAIN SCALE: 10/10 LOCATION: Right inguinal TECHNIQUE: Volumetric scanning of the abdomen and pelvis was performed. Using automated exposure control and ad justment of the mA and/or kV according to patient size, radiation dose was kept as low as reasonably achievable to obtain optimal diagnostic quality images. DICOM format image data is available electro nically for review and comparison. FINDINGS: LOWER LUNGS: The visualized lower lungs are clear. LIVER: Homogeneous density without lesion. There is no dilation of the biliary tree. No calcified gallston es. SPLEEN: Normal size without lesion. PANCREAS: Within normal limits. KIDNEYS: Normal in size and shape. There is no mass, stone or hydronephrosis. Very small, 5 mm cyst in the me dial midpole of the left kidney. Some cortical scarring laterally, also in the midpole of the left ki dney. ADRENAL GLANDS: Within normal limits. VASCULAR: There is no aortic aneurysm. BOWEL/MESENTERY: The stomach, small bowel, and colon demonstrate no acute abnormality. There is no free intraperitone al air or fluid. ABDOMINAL WALL: Within normal limits. RETROPERITONEUM: There is no lymphadenopathy. BLADDER: No wall thickening or mass. REPRODUCTIVE: Patient is status post hysterectomy. INGUINAL: There is no lymphadenopathy or hernia. MUSCULOSKELETAL: Minimal S-shaped scoliosis of the thoracolumbar spine. CONCLUSION: 1. Focal area of cortical scarring laterally in the midpole of left kidney. Benign 5 mm cyst mediall y in the same kidney. 2. Otherwise negative. No acute intraperitoneal or pelvic process to explain current clinical symptom s. 3. Very minimal S-shaped scoliosis of the thoracolumbar spine. Patient is status post hysterectomy Fadi Padgett MD on March 20, 2017 at 17:41 Board Certified Radiologist. This report was verified electronically.
[2017-03-20 17:57] VITALS: BP 137/80; PULSE 65; RESP 16; O2SAT 96
== END 2017-03-20 18:08 | disposition home or self-care (01) ==
LOC: PHED 16:39
DX: R10.31 Right lower quadrant pain (principal); R11.0 Nausea; I10 Essential (primary) hypertension; F17.200 Nicotine dependence, unspecified, uncomplicated; Z87.39 Personal history of other diseases of the musculoskeletal system and connective tissue; Z87.09 Personal history of other diseases of the respiratory system; Z86.2 Personal history of diseases of the blood and blood-forming organs and certain disorders involving the immune mechanism; Z86.59 Personal history of other mental and behavioral disorders; Z86.79 Personal history of other diseases of the circulatory system; Z87.448 Personal history of other diseases of urinary system; Z86.69 Personal history of other diseases of the nervous system and sense organs; Z87.42 Personal history of other diseases of the female genital tract
CPT/HCPCS: 74177; 80053; 83690; 85025; 85610; 85730; 96374; 96375; 99285; J2270; J2405; Q9967